=== PATIENT | female | born 1980 | race American Indian/Alaskan Native ===

== ENCOUNTER 2017-03-31 08:35 | Emergency (ER) | payer MEDICARE, MEDICAID ==
[2017-03-31 08:48] VITALS: BMI 24.1
[2017-03-31 09:22] VITALS: TEMP 97.3
--- NOTE | 2017-03-31 09:29 | ED PDOC ---
Arrival/HPI - General Chief Complaint: Medical Clearance Time Seen by Provider: 03/31/17 08:41 Historian: Parent - History of Present Illness Narrative History of Present Illness (Text): 03/31/17 09:30 A 36 year old female, whose past medical history includes mental retardation, presents to the emergency department with care facility aid who states patient had taken a total of 225 mcg of Levothyroxine, as opposed to her usual 100 mcg by accident, Care facility aide reports some weakness this morning. Patient is nonverbal. Patient's aide denies any other complaints at this time. Symptom Onset: Sudden Symptom Course: Unchanged Activities at Onset: Rest Associated Symptoms (Text): weakness Past Medical History - Provider Review Nursing Documentation Reviewed: Yes - Infectious Disease Hx of Infectious Diseases: None - Tetanus Immunization Tetanus Immunization: Unknown - Cardiac Hx Cardiac Disorders: No Hx Hypertension: No - Pulmonary Hx Respiratory Disorders: No Hx Tuberculosis: No - Neurological Hx Neurological Disorder: Yes HX Cerebrovascular Accident: No Hx Seizures: Yes - HEENT Hx HEENT Disorder: No - Renal Hx Renal Disorder: No Hx Renal Failure: (mild right hydronephrosis) - Endocrine/Metabolic Hx Endocrine Disorders: Yes Hx Diabetes Mellitus Type 2: Yes ("Diet Controlled") Hx Hyperthyroidism: Yes Hx Hypothyroidism: Yes - Hematological/Oncological Hx Cancer: No - Integumentary Hx Dermatological Disorder: No - Musculoskeletal/Rheumatological Hx Musculoskeletal Disorders: No - Gastrointestinal Hx Gastrointestinal Disorders: No - Genitourinary/Gynecological Hx Genitourinary Disorders: No Hx Sexually Transmitted Diseases: No - Psychiatric Hx Depression: No Hx Emotional Abuse: No Hx Physical Abuse: No (unable to accertain) Hx Substance Use: No - Past Surgical History Past Surgical History: No Previous - Anesthesia Hx Anesthesia: No Hx Anesthesia Reactions: No Hx Malignant Hyperthermia: No - Suicidal Assessment Feels Threatened In Home Enviroment: No Family/Social History - Physician Review Nursing Documentation Reviewed: Yes Family/Social History: No Known Family HX Smoking Status: Never Smoked Hx Alcohol Use: No Hx Substance Use: No Hx Substance Use Treatment: No Allergies/Home Meds Allergies/Adverse Reactions: Allergies divalproex sodium Allergy (Verified 03/31/17 08:47) ANAPHYLAXIS levetiracetam [From Keppra] Allergy (Verified 03/31/17 08:47) ANAPHYLAXIS valproic acid Allergy (Verified 03/31/17 08:47) ANAPHYLAXIS Home Medications: Home Meds Medication Instructions Recorded Confirmed Cholecalciferol [Vitamin D] 50,000 iu PO QWK 03/31/17 03/31/17 Cinacalcet [Sensipar] 60 mg PO BID 03/31/17 03/31/17 DiphenhydrAMINE [Benadryl] 50 mg PO BID 03/31/17 03/31/17 Divalproex [Depakote ER] 500 mg PO TID 03/31/17 03/31/17 Levothyroxine [Levoxyl] 0.125 mg PO DAILY 03/31/17 03/31/17 Magnesium Oxide [Mag-Ox] 400 mg PO DAILY 03/31/17 03/31/17 Ziprasidone [Geodon Cap] 20 mg PO DAILY 03/31/17 03/31/17 chlorproMAZINE [Thorazine] 200 mg PO TID 03/31/17 03/31/17 Review of Systems - Physician Review All systems were reviewed & negative as marked: Yes - Review of Systems Constitutional: Normal Eyes: Normal ENT: Normal Respiratory: Normal Cardiovascular: Normal Gastrointestinal: Normal Genitourinary Female: Normal Musculoskeletal: Normal Skin: Normal Neurological: Normal Endocrine: Normal Hemo/Lymphatic: Normal Psychiatric: Normal Physical Exam Vital Signs Reviewed: Yes Vital Signs Temp Pulse Resp BP Pulse Ox 03/31/17 10:30 80 18 121/72 100 03/31/17 09:21 97.3 F L 86 16 113/74 98 Temperature: Afebrile Blood Pressure: Normal Pulse: Regular Respiratory Rate: Normal Appearance: Positive for: Well-Appearing, Non-Toxic, Comfortable Pain Distress: None Mental Status: No: Alert and Oriented X 3 (Alert and awake, nonverbal) - Systems Exam Head: Present: Atraumatic, Normocephalic Pupils: Present: PERRL Extroacular Muscles: Present: EOMI Conjunctiva: Present: Normal Mouth: Present: Moist Mucous Membranes Neck: Present: Normal Range of Motion Respiratory/Chest: Present: Clear to Auscultation, Good Air Exchange. No: Respiratory Distress, Accessory Muscle Use Cardiovascular: Present: Regular Rate and Rhythm, Normal S1, S2. No: Murmurs Abdomen: Present: Normal Bowel Sounds. No: Tenderness, Distention, Peritoneal Signs Back: Present: Normal Inspection Upper Extremity: Present: Normal Inspection, NORMAL PULSES. No: Cyanosis, Edema Lower Extremity: Present: Normal Inspection, NORMAL PULSES. No: Edema Neurological: Present: GCS=15, CN II-XII Intact, Motor Func Grossly Intact, Normal Sensory Function, Norm Deep Tendon Reflexes Skin: Present: Warm, Dry, Normal Color. No: Rashes Psychiatric: Present: Alert, Other (nonverbal) Medical Decision Making ED Course and Treatment: 03/31/17 09:24 Impression: A 36 year old female who accidentally took 225 mcg of Levothryoxine, instead of usual 100 mcg. DDx: Accident Overdose Plan: -- Reassess and disposition Prior Visits: Notes and results from previous visits were reviewed. Patient last reported to emergency department on 06/25/15 for evaluation of agitation. Patient was banging head on the wall in correction. 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 Patient was discharged from psychiatric on 07/05/15. Progress Notes: Review of systems as per healthcare aide. 03/31/17 09:23 Spoke to Merle from poison control, who agrees patient does not need to be monitored. Patient will be discharged and needs to follow up with PMD outpatient. Patient is stable for discharge. Patient's health aide was instructed to follow up with physician/clinic in 1-2 days or return if symptoms worsen or new concerning symptoms arise. - Scribe Statement The provider has reviewed the documentation as recorded by the Scribe Donna Wyatt All medical record entries made by the Scribe were at my direction and personally dictated by me. I have reviewed the chart and agree that the record accurately reflects my personal performance of the history, physical exam, medical decision making, and the department course for this patient. I have also personally directed, reviewed, and agree with the discharge instructions and disposition. Disposition/Present on Arrival - Present on Arrival Any Indicators Present on Arrival: No History of DVT/PE: No History of Uncontrolled Diabetes: No Urinary Catheter: No History of Decub. Ulcer: No History Surgical Site Infection Following: None - Disposition Have Diagnosis and Disposition been Completed?: Yes Diagnosis: Accidental medication overdose Disposition: HOME/ ROUTINE Disposition Time: 10:31 Patient Plan: Discharge Patient Problems: Current Active Problems Problem Status Onset Accidental medication overdose Acute Condition: GOOD Discharge Instructions (ExitCare): Levothyroxine (By mouth) Additional Instructions: Ms Miller, thank you for letting us take care of you today. Your provider was Dr. Burr. You were treated for Accident Medication overdose. The emergency medical care you received today was directed at your acute symptoms. If you were prescribed any medication, please fill it and take as directed. It may take several days for your symptoms to resolve. Return to the Emergency Department if your symptoms worsen, do not improve, or if you have any other problems. Please contact your doctor or call one of the physicians/clinics you have been referred to that are listed on the Patient Visit Information form that is included in your discharge packet. Bring any paperwork you were given at discharge with you along with any medications you are taking to your follow up visit. Our treatment cannot replace ongoing medical care by a primary care provider (PCP) outside of the emergency department. Thank you for allowing the [facility] team to be part of your care today. If you had an X-Ray or CT scan: A Radiologist will review the ED reading if any change in treatment is needed we will contact you. If you had a blood, urine, or wound culture: It will take several days for the results, if any change in treatment is needed we will contact you. If you had an STI test: It will take 48 hours for the results. Please call after 1 week if you have not heard back. Referrals: Maura Lozada MD [Primary Care Provider] - Follow up with primary
[2017-03-31 10:31] VITALS: BP 121/72; PULSE 80; RESP 18; O2SAT 100
== END 2017-03-31 10:31 | disposition home or self-care (01) ==
LOC: ED 08:35
DX: T38.1X1A Poisoning by thyroid hormones and substitutes, accidental (unintentional), initial encounter (principal); Y92.89 Other specified places as the place of occurrence of the external cause

== ENCOUNTER 2018-04-03 09:53 | Emergency (ER) | payer MEDICARE, MEDICAID ==
[2018-04-03 09:54] VITALS: BMI 24.1
[2018-04-03 10:46] VITALS: TEMP 98.4
--- NOTE | 2018-04-03 10:50 | ED PDOC ---
Arrival/HPI - General Chief Complaint: Abnormal Skin Integrity Time Seen by Provider: 04/03/18 10:46 Historian: Caregiver - History of Present Illness Narrative History of Present Illness (Text): 04/03/18 10:47 Pt is a 37 year old female with past medical history of autism and MR who was bib caregiver for a bruise on the left thoracic aspect of the back for the past day. Caregiver states that she was told to bring her in as per the long term that she lives in, to be checked. Pt is known to rock aggressively in her chair and bang her head, therefore wears a Austen for protection. Pt does not complain of pain or any other symptoms at this time. 04/03/18 10:51 Time/Duration: Prior to Arrival Symptom Onset: Sudden Symptom Course: Unchanged Quality: Unable to Describe Severity Level: 4 Activities at Onset: Light Context: Home Past Medical History - Provider Review Nursing Documentation Reviewed: Yes - Travel History Have you recently traveled outside [place] w/in the past 3 mons?: No - Past History Past History: No Previous - Infectious Disease Hx of Infectious Diseases: None - Tetanus Immunization Tetanus Immunization: Unknown - Reproductive Menopause: No - Cardiac Hx Cardiac Disorders: No Hx Hypertension: No - Pulmonary Hx Respiratory Disorders: No Hx Tuberculosis: No - Neurological Hx Neurological Disorder: Yes HX Cerebrovascular Accident: No Hx Seizures: Yes - HEENT Hx HEENT Disorder: No - Renal Hx Renal Disorder: Yes Hx Renal Failure: (mild right hydronephrosis) Other/Comment: chronic kidney disease - Endocrine/Metabolic Hx Endocrine Disorders: Yes Hx Diabetes Mellitus Type 2: Yes ("Diet Controlled") Hx Hypothyroidism: Yes - Hematological/Oncological Hx Cancer: No - Integumentary Hx Dermatological Disorder: No - Musculoskeletal/Rheumatological Hx Musculoskeletal Disorders: No - Gastrointestinal Hx Gastrointestinal Disorders: No - Genitourinary/Gynecological Hx Genitourinary Disorders: No Hx Sexually Transmitted Diseases: No - Psychiatric Hx Psychophysiologic Disorder: Yes Hx Depression: No Hx Emotional Abuse: No Hx Physical Abuse: No (unable to accertain) Hx Substance Use: No Other/Comment: As per paperwork, "autistic disorder;" "severe intellectual disability" - Past Surgical History Past Surgical History: No Previous - Anesthesia Hx Anesthesia: No Hx Anesthesia Reactions: No Hx Malignant Hyperthermia: No - Suicidal Assessment Feels Threatened In Home Enviroment: No Family/Social History - Physician Review Nursing Documentation Reviewed: Yes Family/Social History: Unknown Family HX Smoking Status: Never Smoked Hx Alcohol Use: No Hx Substance Use: No Hx Substance Use Treatment: No Allergies/Home Meds Allergies/Adverse Reactions: Allergies divalproex sodium Allergy (Verified 03/31/17 08:47) ANAPHYLAXIS levetiracetam [From Keppra] Allergy (Verified 03/31/17 08:47) ANAPHYLAXIS valproic acid Allergy (Verified 03/31/17 08:47) ANAPHYLAXIS Home Medications: Home Meds Medication Instructions Recorded Confirmed Cholecalciferol [Vitamin D] 50,000 iu PO QWK 03/31/17 04/03/18 Cinacalcet [Sensipar] 60 mg PO BID 03/31/17 04/03/18 DiphenhydrAMINE [Benadryl] 50 mg PO BID 03/31/17 04/03/18 Divalproex [Depakote ER] 500 mg PO TID 03/31/17 04/03/18 Levothyroxine [Levoxyl] 0.125 mg PO DAILY 03/31/17 04/03/18 Magnesium Oxide [Mag-Ox] 400 mg PO DAILY 03/31/17 04/03/18 Ziprasidone [Geodon Cap] 20 mg PO DAILY 03/31/17 04/03/18 chlorproMAZINE [Thorazine] 200 mg PO TID 03/31/17 04/03/18 Review of Systems - Review of Systems Systems not reviewed;Unavailable: Language Barrier Constitutional: Normal Eyes: Normal ENT: Normal Respiratory: Normal Cardiovascular: Normal Gastrointestinal: Normal Genitourinary Female: Normal Musculoskeletal: Normal. absent: Back Pain, Neck Pain Skin: Normal, Other (ecchymosis left side of back) Neurological: Normal Endocrine: Normal Hemo/Lymphatic: Normal Psychiatric: Normal Physical Exam Vital Signs Reviewed: Yes Vital Signs Temp Pulse Resp BP Pulse Ox 04/03/18 12:06 17 04/03/18 12:03 70 17 130/85 99 04/03/18 11:18 68 18 128/79 98 04/03/18 10:22 98.4 F 71 18 132/87 98 Temperature: Afebrile Blood Pressure: Normal Pulse: Regular Respiratory Rate: Normal Appearance: Positive for: Well-Appearing, Non-Toxic, Comfortable Pain Distress: None Mental Status: Positive for: Alert and Oriented X 3 - Systems Exam Head: Present: Atraumatic, Normocephalic Pupils: Present: PERRL Extroacular Muscles: Present: EOMI Conjunctiva: Present: Normal Mouth: Present: Moist Mucous Membranes Neck: Present: Normal Range of Motion Respiratory/Chest: Present: Clear to Auscultation, Good Air Exchange. No: Respiratory Distress, Accessory Muscle Use Cardiovascular: Present: Regular Rate and Rhythm, Normal S1, S2. No: Murmurs Abdomen: No: Tenderness, Distention, Peritoneal Signs Back: Present: Normal Inspection Upper Extremity: Present: Normal Inspection. No: Cyanosis, Edema Lower Extremity: Present: Normal Inspection. No: Edema Neurological: Present: GCS=15, CN II-XII Intact, Speech Normal Skin: Present: Warm, Dry, Normal Color, Other (ecchymosis on the left T6-7 aspect in a linear and horizontal manner). No: Rashes, Diaphoretic, Erythematous Lymphatic: No: Cervical Adenopathy, Axillary Adenopathy, Inguinal Adenopathy Psychiatric: Present: Alert, Other (autistic) Medical Decision Making ED Course and Treatment: 04/03/18 10:54 Impression Pt is a 37 year old female with past medical history of autism and MR who was bib caregiver for a bruise on the left thoracic aspect of the back for the past day Linear ecchymosis of the left thoracic aspect, where the back of a chair typically rises, no tenderness on palpation; no other findings on exam Plan Bilateral rib XR assess and dispo Prgress note 04/03/18 16:46 explained to caregiver that if bruising continues to spread or other bruises appear, follow up with PMD VSS and pt ambulated well out of the ED - RAD Interpretation Narrative RAD Interpretations (Text): 04/03/18 16:46 PROCEDURE: Radiographs of the chest and bilateral ribs HISTORY: Bruise COMPARISON: Comparison made with chest radiograph dated 06/22/2015 TECHNIQUE: Frontal radiograph of the chest and multiple oblique radiographs of the bilateral ribs were obtained. FINDINGS: RIGHT RIBS: No fracture or focal lesion visualized. LEFT RIBS: No fracture or focal lesion visualized. LUNGS: Clear. PLEURA: No pneumothorax or pleural fluid. CARDIOVASCULAR: Normal sized heart. No pulmonary vascular congestion. OTHER FINDINGS: None. IMPRESSION: Unremarkable radiographs of the chest and bilateral ribs. No rib fracture. If symptoms persist or occult fracture suspected clinically recommend followup CT scan chest. Radiology Orders: 04/03/18 10:46 RIBS BILATERAL [RAD] Stat Butcher Head: Radiologist Disposition/Present on Arrival - Present on Arrival Any Indicators Present on Arrival: No History of DVT/PE: No History of Uncontrolled Diabetes: No Urinary Catheter: No History of Decub. Ulcer: No History Surgical Site Infection Following: None - Disposition Have Diagnosis and Disposition been Completed?: Yes Diagnosis: Contusion of back, Autistic spectrum disorder, alcohol syndrome, Agitation Disposition: HOME/ ROUTINE Disposition Time: 11:38 Patient Plan: Discharge Condition: STABLE Discharge Instructions (ExitCare): Contusion (DC) Additional Instructions: Caregiver of Hellen, thank you for letting us take care of her today. Your provider was ASMITA Reyna. You were treated for a back contusion on the left side. The emergency medical care you received today was directed at your acute symptoms. If you were prescribed any medication, please fill it and take as directed. It may take several days for your symptoms to resolve. Return to the Emergency Department if your symptoms worsen, do not improve, or if you have any other problems. If the patient continues to have worsening of bruising or new areas of bruising, please see the Primary care doctor for further evaluation Please contact your doctor or call one of the physicians/clinics you have been referred to that are listed on the Patient Visit Information form that is included in your discharge packet. Bring any paperwork you were given at discharge with you along with any medications you are taking to your follow up visit. Our treatment cannot replace ongoing medical care by a primary care provider (PCP) outside of the emergency department. Thank you for allowing the [facility] team to be part of your care today. If you had an X-Ray or CT scan: A Radiologist will review the ED reading if any change in treatment is needed we will contact you. Referrals: Tricia Banks MD [Primary Care Provider] - Follow up with primary Forms: [employer] (Thai)
[2018-04-03 12:05] VITALS: BP 130/85; PULSE 70; RESP 17; O2SAT 99
--- NOTE | 2018-04-03 15:19 | RAD ---
PROCEDURE: Radiographs of the chest and bilateral ribs HISTORY: Bruise COMPARISON: Comparison made with chest radiograph dated 06/22/2015 TECHNIQUE: Frontal radiograph of the chest and multiple oblique radiographs of the bilateral ribs were obtained. FINDINGS: RIGHT RIBS: No fracture or focal lesion visualized. LEFT RIBS: No fracture or focal lesion visualized. LUNGS: Clear. PLEURA: No pneumothorax or pleural fluid. CARDIOVASCULAR: Normal sized heart. No pulmonary vascular congestion. OTHER FINDINGS: None. IMPRESSION: Unremarkable radiographs of the chest and bilateral ribs. No rib fracture. If symptoms persist or occult fracture suspected clinically recommend followup CT scan chest.
== END 2018-04-03 12:06 | disposition home or self-care (01) ==
LOC: ED 09:53
DX: S20.222A Contusion of left back wall of thorax, initial encounter (principal); X58.XXXA Exposure to other specified factors, initial encounter; Q86.0 Fetal alcohol syndrome (dysmorphic); R45.1 Restlessness and agitation; F84.0 Autistic disorder; E11.9 Type 2 diabetes mellitus without complications; N18.9 Chronic kidney disease, unspecified; E03.9 Hypothyroidism, unspecified

== ENCOUNTER 2019-03-31 01:42 | Emergency (ER) | payer MEDICARE, MEDICAID ==
[2019-03-31 01:43] VITALS: BMI 24.1
--- NOTE | 2019-03-31 02:40 | ED PDOC ---
Arrival/HPI - General Historian: Patient, Caregiver - History of Present Illness Narrative History of Present Illness (Text): 03/31/19 02:39 Pt is a 38 yo female with a PMH of MRROBBIE, alcohol syndrome, seizure disorder, and diabetes who presents to the emergency department from a [facility] with her caregiver for BL LE edema which started today. Pt is non verbal and caregiver is a poor historian, all pt medical history is obtained from EMR. Time/Duration: 24 hours Symptom Onset: Gradual Symptom Course: Unchanged <Jacob Wilcox - Last Filed: 03/31/19 04:21> <Radha Cabrera - Last Filed: 03/31/19 22:58> - General Chief Complaint: Lower Extremity Problem/Injury Past Medical History - Past History Past History: No Previous - Infectious Disease Hx of Infectious Diseases: None - Tetanus Immunization Tetanus Immunization: Unknown - Cardiac Hx Cardiac Disorders: No Hx Hypertension: No - Pulmonary Hx Respiratory Disorders: No Hx Tuberculosis: No - Neurological Hx Neurological Disorder: Yes HX Cerebrovascular Accident: No Hx Seizures: Yes Other/Comment: Autism - HEENT Hx HEENT Disorder: No - Renal Hx Renal Disorder: Yes Hx Renal Failure: (mild right hydronephrosis) Other/Comment: chronic kidney disease - Endocrine/Metabolic Hx Endocrine Disorders: Yes Hx Diabetes Mellitus Type 2: Yes ("Diet Controlled") Hx Hypothyroidism: Yes - Hematological/Oncological Hx Cancer: No - Integumentary Hx Dermatological Disorder: No - Musculoskeletal/Rheumatological Hx Musculoskeletal Disorders: No - Gastrointestinal Hx Gastrointestinal Disorders: No - Genitourinary/Gynecological Hx Genitourinary Disorders: No Hx Sexually Transmitted Diseases: No - Psychiatric Hx Psychophysiologic Disorder: Yes Hx Depression: No Hx Emotional Abuse: No Hx Physical Abuse: No (unable to accertain) Hx Substance Use: No Other/Comment: As per paperwork, "autistic disorder;" "severe intellectual disability" - Past Surgical History Past Surgical History: No Previous - Anesthesia Hx Anesthesia: No Hx Anesthesia Reactions: No Hx Malignant Hyperthermia: No - Suicidal Assessment Feels Threatened In Home Enviroment: No <Jacob Wilcox - Last Filed: 03/31/19 04:21> Family/Social History Family/Social History: No Known Family HX Smoking Status: Never Smoked Hx Alcohol Use: No Hx Substance Use: No Hx Substance Use Treatment: No <Jacob Wilcox - Last Filed: 03/31/19 04:21> Allergies/Home Meds <Jacob Wilcox - Last Filed: 03/31/19 04:21> <Radha Cabrera - Last Filed: 03/31/19 22:58> Allergies/Adverse Reactions: Allergies divalproex sodium Allergy (Verified 03/31/19 01:51) ANAPHYLAXIS levetiracetam [From [facility]] Allergy (Verified 03/31/19 01:51) ANAPHYLAXIS valproic acid Allergy (Verified 03/31/19 01:51) ANAPHYLAXIS Home Medications: Home Meds Medication Instructions Recorded Confirmed Cholecalciferol [Vitamin D] 50,000 iu PO QWK 03/31/17 03/31/19 Cinacalcet [Sensipar] 60 mg PO BID 03/31/17 03/31/19 DiphenhydrAMINE [Benadryl] 50 mg PO BID 03/31/17 03/31/19 Divalproex [Depakote ER] 500 mg PO TID 03/31/17 03/31/19 Levothyroxine [Levoxyl] 0.125 mg PO DAILY 03/31/17 03/31/19 Magnesium Oxide [Mag-Ox] 400 mg PO DAILY 03/31/17 03/31/19 Ziprasidone [Geodon Cap] 20 mg PO DAILY 03/31/17 03/31/19 chlorproMAZINE [Thorazine] 200 mg PO TID 03/31/17 03/31/19 Physical Exam Vital Signs Reviewed: Yes Temperature: Afebrile Blood Pressure: Normal Pulse: Regular Respiratory Rate: Normal Appearance: Positive for: Well-Appearing - Systems Exam Head: Present: Atraumatic, Normocephalic Pupils: Present: PERRL Extroacular Muscles: Present: EOMI Mouth: Present: Moist Mucous Membranes Neck: Present: Normal Range of Motion Respiratory/Chest: Present: Clear to Auscultation, Good Air Exchange Cardiovascular: Present: Regular Rate and Rhythm Abdomen: No: Tenderness Upper Extremity: Present: Normal Inspection Lower Extremity: Present: Edema, NORMAL PULSES, Normal ROM. No: CALF TENDERNESS Neurological: Present: CN II-XII Intact Skin: Present: Warm, Dry <Jacob Wilcox - Last Filed: 03/31/19 04:21> Vital Signs Temp Pulse Resp BP Pulse Ox 03/31/19 05:40 80 16 129/80 98 03/31/19 03:50 83 16 133/81 97 03/31/19 01:43 97.9 F 90 17 137/84 98 <Radha Cabrera - Last Filed: 03/31/19 22:58> Medical Decision Making ED Course and Treatment: 03/31/19 02:46 BL LE venous duplex 03/31/19 04:19 duplex shows no signs of DVT pt to be discharged home Pt seen, examined, assessment and plan discussed with Dr Deborah Wilcox PGY1 - RAD Interpretation Radiology Orders: 03/31/19 02:28 DUPLEX LOWER EXTRM VEIN BILAT [US] Stat <Jacob Wilcox - Last Filed: 03/31/19 04:21> ED Course and Treatment: In agreement with resident note, which includes further HPI details. Patient was seen and evaluated with resident, came up with plan and treatment together. - RAD Interpretation Radiology Orders: 03/31/19 02:28 DUPLEX LOWER EXTRM VEIN BILAT [US] Stat - Medication Orders Current Medication Orders: Discontinued Medications Ziprasidone (Geodon Inj) 20 mg IM STAT STA; Protocol Stop: 03/31/19 03:12 Last Admin: 03/31/19 03:13 Dose: 20 mg IM Administration Charges Document 03/31/19 03:13 KV (Rec: 03/31/19 03:14 KV [id number]) Injection Site MAR Injection Site Left Deltoid Charges for Administration # of IM Administrations 1 <Radha Cabrera - Last Filed: 03/31/19 22:58> Disposition/Present on Arrival - Present on Arrival Any Indicators Present on Arrival: No History of DVT/PE: No History of Uncontrolled Diabetes: No Urinary Catheter: No History of Decub. Ulcer: No History Surgical Site Infection Following: None - Disposition Have Diagnosis and Disposition been Completed?: Yes Disposition Time: 04:21 <Jacob Wilcox - Last Filed: 03/31/19 04:21> <Radha Cabrera - Last Filed: 03/31/19 22:58> - Disposition Diagnosis: Edema Disposition: HOME/ ROUTINE Condition: GOOD Discharge Instructions (ExitCare): Dependent Edema (DC), Swelling Print Language: UKRAINIAN Forms: [facility] (Czech)
[2019-03-31 05:22] VITALS: TEMP 97.9; O2SAT 98
[2019-03-31 06:07] VITALS: BP 129/80; PULSE 80; RESP 16
--- NOTE | 2019-04-02 13:51 | US ---
HISTORY: Leg pain and swelling. Evaluate for DVT PHYSICIAN(S): Magen Aguirre MD. TECHNIQUE: Duplex sonography and color-flow Doppler with graded compression were used to evaluate the deep venous systems of both lower extremities. FINDINGS: The visualized deep venous systems of both lower extremities are sonographically normal and compressible. Normal wave forms and augmentation are seen. There is no sonographic evidence for deep venous thrombosis in the visualized segments of both lower extremities. IMPRESSION: No sonographic evidence for deep venous thrombosis in the visualized segments of both lower extremities.
== END 2019-03-31 05:44 | disposition home or self-care (01) ==
LOC: ED 01:42
DX: R60.9 Edema, unspecified (principal); E11.22 Type 2 diabetes mellitus with diabetic chronic kidney disease; N18.9 Chronic kidney disease, unspecified
CPT/HCPCS: 93970; 96372; 99284; J3486